=== PATIENT | female | born 1975 | race Hispanic/Latino ===

== ENCOUNTER 2024-04-01 09:07 | Emergency (ER) | payer SELFPAY ==
[2024-04-01 09:09] VITALS: BP 156/94
[2024-04-01 09:38] LABS: % Basophils 1.6 % (0-2); % Eosinophils 0.4 % (0-6); % Immature Granulocytes 0.2 % (0-0.5); % Lymphocytes 46.2 % (20.5-51.1); % Monocytes 6.7 % (1.7-9.3); % Neutrophils 44.9 % (42.2-75.2); Absolute Basophils 0.1 10^3/uL (0-0.2); Absolute Lymphocytes 2.3 10^3/uL (1.2-3.4); Absolute Monocytes 0.3 10^3/uL (0.1-0.6); Absolute Neutrophils 2.2 10^3/uL (1.4-6.5); Hemoglobin 11.9 g/dL (12.0-16.0); Mean Corp Hgb Conc. 33.1 g/dL (33.0-37.0); Mean Corpuscular Hgb 26.7 pg (27.0-31.0); Mean Corpuscular Volume 80.9 fL (81.0-99.0); Mean Platelet Volume 8.9 fL (7.4-10.4); Nucleated Red Blood Cells % 0 %; Platelet Count 329 10^3/uL (130-400); Red Blood Cell Count 4.45 10^6/uL (4.20-5.40); Red Cell Dist. Width 14.1 % (11.5-14.5); White Blood Cell Count 4.9 10^3/uL (4.8-10.8)
[2024-04-01 09:48] LABS: HCG, Serum Qualitative Screen Negative
[2024-04-01 09:54] LABS: ALT (SGPT) 17 U/L (0-35); AST (SGOT) 25 U/L (14-36); Acetaminophen < 10 ug/ml (10-30); Albumin 4.2 g/dl (3.5-5.0); Alcohol 106 mg/dl; Alkaline Phosphatase 75 U/L (38-126); Blood Urea Nitrogen 14 mg/dl (7-17); Calcium 9.1 mg/dl (8.4-10.2); Carbon Dioxide 26 mmol/L (22-30); Chloride 105 mmol/L (98-107); Glucose 136 mg/dl (70-99); Salicylate < 1.0 mg/dl (2.0-20.0); Sodium 141 mmol/L (135-145); Total Bilirubin 0.5 mg/dl (0.2-1.3); Total Protein 7.7 g/dl (6.3-8.2); eGFR > 60.00
--- NOTE | 2024-04-01 09:58 | ED.GENMED ---
History of Present Illness
General
Chief Complaint: Alcohol Problem
Source: patient
Time Seen by Provider: 04/01/24 09:48
Travel History
Have you had any contact with someone who has COVID-19?: No
Do you have any symptoms of coronavirus? Fever > 100 degrees, chills, cough, shortness of breath, sore throat, loss of taste or smell, muscle aches, or headache?: No
History of Present Illness
History of Present Illness:
48-year-old female with past medical history of alcohol abuse presents to the emergency department for evaluation of binge drinking since this past . Patient states due to stressors in her life she decided to start drinking again. She
states approximately 2 pints per day with her last drink being around 8:45 AM this morning. Patient states that she wants to stop drinking but every time she starts to feel as if she is going to withdrawal she will start drinking. Patient states
that she has gone through DTs but without seizure in the past. She also notes that she has previously done both outpatient and inpatient alcohol programs with the last being 6 years ago. Patient does note a fall on Sunday while she had been
drinking and notes some left-sided headache and left upper eyelid ecchymosis. No visual disturbances, no vomiting or any other concerns.
Past History
Past History
ED Past Medical History: Other (UTIs)
ED Past Surgical History: Appendectomy and
Social History
Tobacco: Non-smoker
Alcohol: Binge drinker
Drug: None
Personal: Single
Living: with family
Employment: Employed
Review of Systems
Review of Systems
All Other Systems: ROS reviewed and negative except as documented in HPI and ROS
Phy Exam
Physical Exam
Physical Exam:
GENERAL: Alert , in no apparent distress
HEAD: Older appearing ecchymosis to the left upper eyelid
EYE: conjunctiva clear, pupils 3 mm bilateral, EOMI
NECK: Supple
ENT: o/p clr, mmm.
CARDIAC: Regular rate and rhythm
LUNGS: Clear breath sounds bilaterally, no acute respiratory distress, no wheezes/rales/rhonchi
NEUROLOGICAL: Alert and oriented
SKIN: Warm and dry, skin intact.
MUSCULOSKELETAL: well perfused.
PSYCH: Normal and appropriate interaction.
Scores
Heart Failure Risk
Heart Failure Risk Score: Not Applicable
Heart Score for Chest Pain Patients
STEMI patient?: Not applicable
Withdrawal Assessment of Alcohol
Withdrawal Assessment Completed?: Yes
Nausea and Vomiting: Mild nausea with no vomiting
Tactile Disturbances: None
Tremor: Not visible, but can be felt fingertip to fingertip
Auditory Disturbances: Not present
Paroxysmal Sweats: No sweat visible
Visual Disturbances: Not present
Anxiety: No anxiety, at ease
Headache, Fullness in Head: Mild
Agitation: Normal activity
Orientation and clouding of sensorium: Oriented and can do serial additions
Total CIWA Score: 4
Alcohol Withdrawal Medication Recommendation: Equal to MSAS Score 0-4. Monitor & re-assess q2hrs, NO MEDICATION NEEDED
Course
Orders/Labs/Results
Orders:
Orders
04/01/24 09:13
Test Result ONCE
04/01/24 09:22
Alcohol Urgent
Complete Blood Count/With Diff Urgent
Comprehensive Metabolic Panel Urgent
HCG, Serum Qualitative Screen Urgent
Salicylate Urgent
Tylenol [Acetaminophen] Urgent
04/01/24 09:58
CT Head W/o Iv Contrast Urgent
Comment:
Reason For Exam: fall, ETOH use, left sided headache
Ondansetron Orally Disint [Zofran Odt (Orally Disintegrating)] 4 mg PO NOW STA
04/01/24 11:15
Lorazepam [Ativan] 0.5 mg PO NOW STA
04/01/24 13:35
Ondansetron Orally Disint [Zofran Odt (Orally Disintegrating)] 4 mg PO NOW STA
Abnormal Lab Results
04/01/24
09:22
Hgb 11.9 L g/dL
(12.0-16.0)
Hct 36.0 L %
(37.0-47.0)
MCV 80.9 L fL
(81.0-99.0)
MCH 26.7 L pg
(27.0-31.0)
Glucose 136 H mg/dl
(70-99)
Salicylates < 1.0 L mg/dl
(2.0-20.0)
Acetaminophen < 10 L ug/ml
(10-30)
04/01/24 09:22
04/01/24 09:22
Vital Signs
Initial and Last Documented VS:
Initial Vital Signs
Temp Pulse Resp BP Pulse Ox
98.9 F 88 20 156/94 98
04/01/24 09:09 04/01/24 09:09 04/01/24 09:09 04/01/24 09:09 04/01/24 09:09
Last Documented Vital Signs
Temp Pulse Resp BP Pulse Ox
98.9 F 78 16 120/69 98
04/01/24 09:09 04/01/24 12:38 04/01/24 12:38 04/01/24 12:38 04/01/24 12:38
MDM/Problems Addressed
Differential Diagnosis Includes:
Alcohol abuse with suspected mild alcohol withdrawal, no current signs of DTs, intracranial bleeding thought to be less likely, head contusion
MDM/Problems Addressed:
48-year-old female presenting to the emergency department for evaluation of alcohol abuse/binge drinking since this past . Patient starts to experience symptoms of withdrawal and then starts drinking again. Currently patient is without any
obvious signs of withdrawal. She is a tremulous, nontachycardic, normotensive and otherwise well-appearing. I did order a CT of the head given patient's reported fall while intoxicated. Will consult [facility] to evaluate patient as she does seem
open to outpatient or inpatient programs. Reassessment following.
*Pulse Oximetry
Patient hypoxic: no
*Manual Winder Interpretation
Rate: normal
Rhythm: sinus
*Critical Care Note
Total Time (30-74mins, 75-104mins- exclusive of procedures): Not Applicable
Data Reviewed
Review of Other/Old Records Reveals: Labs
Source: patient
Comment
Comment:
Friend - Laura Cano ([phone])
Patient Management
Escalation/DeEscalation of care consider admission/obs:
11:15 AM: Patient stating she is starting to feel little bit shaky. She remains hemodynamically stable. I do suspect mild withdrawal symptoms however I am not very concerned for patient going into acute delirium tremens. Will treat with p.o.
Ativan in the meantime. GLORY currently at bedside
1:45 PM: Patient provided with multiple outpatient outlets for close follow-up. Prescription for Zofran and Librium sent to patient's pharmacy. She is otherwise stable for discharge home and aware of return to the ER.
ED Attending Note
-
Portions of this chart may have been created with voice recognition software.� Occasional wrong word or��sound alike� substitutions may have occurred due to the inherent limitations of voice recognition software.
Discharge Plan
Departure
Patient Disposition: Home (Routine Discharge)
Date of Disposition: 04/01/24
Time of Disposition: 11:43
Patient with high blood pressure during this ER visit?: Yes
Discharge Problem:
Alcohol abuse
Instructions: Alcohol Use Disorder (DC)
Prescriptions:
New
ondansetron 4 mg tablet,disintegrating
4 mg PO TIDPRN PRN (Reason: nausea/vomiting) Qty: 8 0RF
chlordiazepoxide HCl 10 mg capsule
10 mg PO DAILY Qty: 2 0RF
No Action
meclizine [Antivert] 25 mg Tablet,Chewable
25 mg PO Q8HPRN PRN (Reason: nausea or vertigo) Qty: 20 0RF
amoxicillin 500 mg capsule
500 mg PO BID Qty: 14 0RF
Referrals:
NONE,* [Family Provider] -
Interventions
Interventions:
*Risk Screen - Suicide Last Done: 04/01/24 10:47
*General Assessment Last Done: 04/01/24 10:47
*Neglect/Abuse Screening Last Done: 04/01/24 10:47
ED- Fall Risk Assessment Last Done: 04/01/24 10:47
*ED COVID-19 Vaccine History Last Done: 04/01/24 09:09
*Nursing Disposition Last Done: 04/01/24 13:40
ED- Neurological Assessment Last Done: 04/01/24 10:47
ED-Psychological Assessment Last Done: 04/01/24 10:47
Discharge Date and Time
Discharge Date/Time: 04/01/24 13:40
Print Language: COMORAN
[2024-04-01] MEDS: ZOFRAN ODT (ORALLY DISINTEGRATING) 4 MG PO ×2 (10:29→13:39)
[2024-04-01] MEDS: ATIVAN 0.5 MG PO (11:26)
[2024-04-01 12:38] VITALS: BP 120/69
== END 2024-04-01 13:40 | disposition home or self-care (01) ==
LOC: EMR 09:07
PROVIDERS: Emergency Medicine; EMERGENCY PHYSICIAN Emergency Medicine
DX: F10.10 Alcohol abuse, uncomplicated (principal); Z87.440 Personal history of urinary (tract) infections; Z90.49 Acquired absence of other specified parts of digestive tract
CPT/HCPCS: 99284; 70450; 80053; 80143; 80179; 82077; 84703; 85025